=== PATIENT | male | born 1985 | race Caucasian/White ===

== ENCOUNTER 2018-10-07 09:18 | Emergency (ER) | payer OTHER ==
[2018-10-07 09:51] VITALS: BP 130/79
--- NOTE | 2018-10-07 10:10 | ED ---
Throat Pain/Nasal Congestion - HPI Summary HPI Summary: 33 yr old male with the complaint of sinus pressure, post nasal drip, coughing. Onset of symptoms over a couple of weeks. No fever. Symptoms are moderate. The patient has yellow nasal discharge and productive cough. - History of Current Complaint Chief Complaint: UCGeneralIllness Time Seen by Provider: 10/07/18 09:52 - Allergies/Home Medications Allergies/Adverse Reactions: Allergies Allergy/AdvReac Type Severity Reaction Status Date / Time Sulfa (Sulfonamide Allergy Intermediate Hives Verified 10/07/18 09:46 Antibiotics) Home Medications: Home Medications Phenylephrine/Dm/Acetaminop/GG [Tylenol Cold-Flu Severe Caplet] 1 each PO ONCE PRN 10/07/18 [History Confirmed 10/07/18] PMH/Surg Hx/FS Hx/Imm Hx Cardiovascular History: Reports: Other Cardiovascular Problems/Disorders - COPD Denies: Hx Pacemaker/ICD Respiratory History: Reports: Hx Chronic Obstructive Pulmonary Disease (COPD) Sensory History: Denies: Hx Hearing Aid Psychiatric History: Denies: Hx Panic Disorder - Surgical History Surgery Procedure, Year, and Place: right inguinal hernia 08/2012. tubes in ears as a child. choly Infectious Disease History: No Infectious Disease History: Denies: Traveled Outside the [place] in Last 30 Days - Social History Occupation: Employed Full-time Alcohol Use: Rare Substance Use Type: Reports: None Smoking Status (MU): Light Every Day Tobacco Smoker Type: Cigarettes Amount Used/How Often: 1/2 PPD Review of Systems Constitutional: Negative Positive: Nasal Discharge, Other - sinus pressure All Other Systems Reviewed And Are Negative: Yes Physical Exam Triage Information Reviewed: Yes Vital Signs On Initial Exam: Initial Vitals Temp Pulse Resp BP Pulse Ox 97.5 F 64 16 130/79 98 10/07/18 09:47 10/07/18 09:47 10/07/18 09:47 10/07/18 09:47 10/07/18 09:47 Vital Signs Reviewed: Yes Appearance: Positive: Well-Appearing, No Pain Distress Skin: Positive: Warm, Skin Color Reflects Adequate Perfusion Head/Face: Positive: Normal Head/Face Inspection Eyes: Positive: EOMI ENT: Positive: Pharynx normal, Nasal congestion, Nasal drainage, TMs normal, Sinus tenderness Neck: Positive: Nontender Respiratory/Lung Sounds: Positive: Clear to Auscultation, Breath Sounds Present Cardiovascular: Positive: RRR. Negative: Murmur Abdomen Description: Negative: Distended Musculoskeletal: Positive: Strength/ROM Intact Neurological: Positive: Sensory/Motor Intact, Alert, Oriented to Person Place, Time, CN Intact II-III, Normal Gait, Speech Normal Psychiatric: Positive: Normal Diagnostics - Vital Signs Vital Signs Temp Pulse Resp BP Pulse Ox 10/07/18 09:47 97.5 F 64 16 130/79 98 - Laboratory Lab Statement: Any lab studies that have been ordered have been reviewed, and results considered in the medical decision making process. EENT Course/Dx - Course Course Of Treatment: 33 yr old male with sinusitis. Rx with Augmentin. - Diagnoses Provider Diagnoses: Sinusitis Discharge - Sign-Out/Discharge Documenting (check all that apply): Patient Departure All imaging exams completed and their final reports reviewed: No Studies - Discharge Plan Condition: Good Disposition: HOME Prescriptions: Amoxicillin/Clavulanate TAB* [Augmentin TAB 875*] 875 mg PO BID #20 tab Patient Education Materials: Sinusitis (ED) Referrals: Nickie Alexandra MD [Primary Care Provider] - 4 Days - Billing Disposition and Condition Condition: GOOD Disposition: Home
== END 2018-10-07 10:08 | disposition home or self-care (01) ==
LOC: UCCORT 09:18
DX: J32.9 Chronic sinusitis, unspecified (principal); R09.81 Nasal congestion; R05 Cough; J44.9 Chronic obstructive pulmonary disease, unspecified; F17.210 Nicotine dependence, cigarettes, uncomplicated; Z88.2 Allergy status to sulfonamides
CPT/HCPCS: 99202; G0463

== ENCOUNTER 2019-05-31 09:07 | Emergency (ER) | payer OTHER ==
[2019-05-31 09:24] VITALS: BP 132/85
--- NOTE | 2019-05-31 09:52 | UC ---
Throat Pain/Nasal Deep HPI - HPI Summary HPI Summary: Per facilities maintenance worker: "Sinus congestion and pressure that is now in his chest, productive cough, sore throat, wheezing, chills x2 weeks." + asthma, only mild sx. doesnt have albuterol but would like RF. has h/o pneumonia and wonders if that is what he has -has 5 mo old baby at home with mild cough but no fever. + smoker - History of Current Complaint Chief Complaint: UCGeneralIllness Stated Complaint: CHEST CONGESTION,COUGH, RUNNY NOSE Time Seen by Provider: 05/31/19 09:48 Pain Intensity: 2 - Allergies/Home Medications Allergies/Adverse Reactions: Allergies Allergy/AdvReac Type Severity Reaction Status Date / Time Sulfa (Sulfonamide Allergy Intermediate Hives Verified 05/31/19 09:18 Antibiotics) Home Medications: Home Medications Methylphenidate HCl [Ritalin LA] 30 mg PO DAILY 05/31/19 [History Confirmed ] Oxycodone HCl/Acetaminophen [Percocet 5-325 mg Tablet] 1 tab PO DAILY PRN [History Confirmed 05/31/19] PMH/Surg Hx/FS Hx/Imm Hx Previously Healthy: Yes Respiratory History: Asthma - Surgical History Surgical History: Yes Surgery Procedure, Year, and Place: right inguinal hernia 08/2012. tubes in ears as a child. cholecystectomy - Family History Known Family History: Positive: Respiratory Disease - + asthma - Social History Alcohol Use: Rare Substance Use Type: None Smoking Status (MU): Light Every Day Tobacco Smoker Type: Cigarettes Amount Used/How Often: 1/2 PPD Review of Systems All Other Systems Reviewed And Are Negative: Yes Constitutional: Positive: Fever, Chills, Fatigue Skin: Positive: Negative. Negative: Rash Eyes: Positive: Negative ENT: Positive: Sore Throat, Nasal Discharge, Sinus Congestion Respiratory: Positive: Cough. Negative: Shortness Of Breath Cardiovascular: Positive: Negative. Negative: Palpitations, Chest Pain Gastrointestinal: Positive: Negative. Negative: Vomiting, Diarrhea, Nausea Genitourinary: Positive: Negative. Negative: Dysuria Motor: Positive: Negative Neurovascular: Positive: Negative Musculoskeletal: Positive: Negative Neurological: Positive: Negative Psychological: Positive: Negative Is Patient Immunocompromised?: No Physical Exam Triage Information Reviewed: Yes Appearance: Well-Appearing, No Pain Distress, Well-Nourished - vague historian Vital Signs: Initial Vital Signs Temp 97.6 F 05/31/19 09:20 Pulse 77 05/31/19 09:20 Resp 21 05/31/19 09:20 BP 132/85 05/31/19 09:20 Pulse Ox 98 05/31/19 09:20 Vital Signs Reviewed: Yes Eye Exam: Normal Eyes: Positive: Conjunctiva Clear ENT: Positive: Pharyngeal erythema - + PND, no exudate, Nasal congestion, TMs normal, Uvula midline. Negative: TM bulging, TM dull, TM red, Tonsillar swelling, Tonsillar exudate, Sinus tenderness Neck exam: Normal Neck: Positive: Supple, Nontender, No Lymphadenopathy Respiratory Exam: Normal Respiratory: Positive: Lungs clear, Normal breath sounds, No respiratory distress, No accessory muscle use. Negative: Crackles, Rhonchi, Stridor, Wheezing Cardiovascular Exam: Normal Cardiovascular: Positive: RRR Abdominal Exam: Normal Abdomen Description: Positive: Nontender, Soft Musculoskeletal Exam: Normal Neurological Exam: Normal Psychological Exam: Normal Skin Exam: Normal Skin: Negative: Rashes Throat Pain/Nasal Course/Dx - Course Course Of Treatment: + raopid strep -no e/o pneumonia on lung exam but reassured that treatment w/ augmentin would treat pneumonia -RF albuterol given. recommend f/u sooner if sx increase or persist -f/u with pcp 5-6 days - Differential Dx/Diagnosis Differential Diagnosis/HQI/PQRI: Laryngitis, Pharyngitis, Tonsillitis, URI Provider Diagnosis: Strep pharyngitis, Bronchitis Discharge ED - Sign-Out/Discharge Documenting (check all that apply): Patient Departure All imaging exams completed and their final reports reviewed: No Studies - Discharge Plan Condition: Stable Disposition: HOME Prescriptions: Albuterol HFA INHALER* [Ventolin HFA Inhaler*] 2 puff INH Q4H PRN 14 Days #1 mdi PRN Reason: Cough Amoxicillin/Clavulanate TAB* [Augmentin TAB 875*] 875 mg PO BID #20 tab Patient Education Materials: Strep Throat (ED) Referrals: Audrey Hoover NP [Primary Care Provider] - 6 Days Additional Instructions: rapid strep test is positive -It is recommended that you take a probiotic daily while you are on antibiotics. A few common brands that you can buy over the counter are [employer] health, align and florastor. These can help prevent a colon infection called c diff that can be associated with antibiotic use. - Billing Disposition and Condition Condition: STABLE Disposition: Home
== END 2019-05-31 09:58 | disposition home or self-care (01) ==
LOC: UCCORT 09:07
DX: J02.0 Streptococcal pharyngitis (principal); J45.909 Unspecified asthma, uncomplicated; F17.210 Nicotine dependence, cigarettes, uncomplicated; Z88.2 Allergy status to sulfonamides
CPT/HCPCS: 87651; 99212; G0463